=== PATIENT | male | born 2000 | race Caucasian/White ===

== ENCOUNTER 2024-04-04 21:44 | Emergency (ER) | payer MEDICAID ==
[2024-04-04] MEDS: Alum Hydrox/Mag Hydrox/Simeth 30 ML, Lidocaine 2% 15 ML PO ONE (22:51)
[2024-04-04] MEDS: Pantoprazole 40 MG in Sodium Chloride 0.9% 100 ML IV ONE (22:51)
[2024-04-04] MEDS: Sodium Chloride 0.9% 10 ML Syringe FLUSH PRN (22:59)
[2024-04-04 23:07] LABS: BASOPHILS PERCENT AUTO 0.6 % (0.0-1.0); EOSINOPHILS ABSOLUTE AUTO 0.1 K/mm3 (0.0-0.4); EOSINOPHILS PERCENT AUTO 1.1 % (0.0-6.0); HEMATOCRIT 43.9 % (42.0-52.0); HEMOGLOBIN 14.9 gm/dl (14.0-18.0); IMMATURE GRAN ABSOLUTE AUTO 0.02 K/mm3 (0.00-0.05); IMMATURE GRAN PERCENT AUTO 0.3 % (0.0-0.4); LYMPHOCYTES ABSOLUTE AUTO 1.8 K/mm3 (1.0-4.8); LYMPHOCYTES PERCENT AUTO 27.2 % (24.0-44.0); MEAN CORPUSCULAR HEMOGLOBIN 29.7 pg (28.0-32.0); MEAN CORPUSCULAR HGB CONC 33.9 g/dl (32.0-36.0); MEAN CORPUSCULAR VOLUME 87.5 fl (83.0-99.0); MEAN PLATELET VOLUME 8.6 fl (9.4-12.4); MONOCYTES ABSOLUTE AUTO 0.4 K/mm3 (0.0-0.8); MONOCYTES PERCENT AUTO 5.6 % (0.0-8.0); NEUTROPHILS ABSOLUTE AUTO 4.4 K/mm3 (1.8-7.7); NEUTROPHILS PERCENT AUTO 65.2 % (41.0-71.0); PLATELET COUNT,PLT 321 K/mm3 (150-400); RED BLOOD CELL COUNT 5.02 M/mm3 (4.52-5.90); WHITE BLOOD CELL COUNT,WBC 6.66 K/mm3 (3.9-11.3)
[2024-04-04 23:23] LABS: A/G RATIO 1.3 (1-2); ALBUMIN 4.3 g/dl (3.4-5.0); ANION GAP 11.8 (5-15); BILIRUBIN TOTAL 0.5 mg/dL (0.2-1.0); BUN/CREATININE RATIO 15.8 (14-18); CALCIUM 9.6 mg/dL (8.5-10.1); CREATININE 1.2 mg/dL (0.7-1.3); EST CRCL DRUG DOSING (CG) 106.88 mL/min; POTASSIUM,K 3.8 mEq/L (3.5-5.1); PROTEIN TOTAL,TP 7.6 g/dl (6.4-8.2)
[2024-04-04] MEDS: Sucralfate Suspension 1 GM/10 ML Cup PO ONE (23:34)
== END 2024-04-04 23:45 | disposition home or self-care (01) ==
LOC: JD.ED 21:44
DX: K21.00 Gastro-esophageal reflux disease with esophagitis, without bleeding (principal); K29.01 Acute gastritis with bleeding
CPT/HCPCS: 36415; 80053; 85025; 96365; 99284; A9270; C9113; J3490

== ENCOUNTER 2024-08-29 03:18 | Emergency (ER) | payer MEDICAID ==
[2024-08-29] MEDS ORDERED: Sodium Chloride 0.9% 10 ML Syringe FLUSH PRN (03:33)
[2024-08-29 03:50] LABS: BASOPHILS PERCENT AUTO 0.7 % (0.0-1.0); EOSINOPHILS ABSOLUTE AUTO 0.1 K/mm3 (0.0-0.4); EOSINOPHILS PERCENT AUTO 1.5 % (0.0-6.0); HEMATOCRIT 42.4 % (42.0-52.0); HEMOGLOBIN 14.6 gm/dl (14.0-18.0); IMMATURE GRAN ABSOLUTE AUTO 0.01 K/mm3 (0.00-0.05); IMMATURE GRAN PERCENT AUTO 0.2 % (0.0-0.4); LYMPHOCYTES ABSOLUTE AUTO 1.5 K/mm3 (1.0-4.8); LYMPHOCYTES PERCENT AUTO 25.9 % (24.0-44.0); MEAN CORPUSCULAR HEMOGLOBIN 29.7 pg (28.0-32.0); MEAN CORPUSCULAR HGB CONC 34.4 g/dl (32.0-36.0); MEAN CORPUSCULAR VOLUME 86.4 fl (83.0-99.0); MEAN PLATELET VOLUME 8.6 fl (9.4-12.4); MONOCYTES ABSOLUTE AUTO 0.5 K/mm3 (0.0-0.8); MONOCYTES PERCENT AUTO 8.5 % (0.0-8.0); NEUTROPHILS ABSOLUTE AUTO 3.7 K/mm3 (1.8-7.7); NEUTROPHILS PERCENT AUTO 63.2 % (41.0-71.0); PLATELET COUNT,PLT 330 K/mm3 (150-400); RED BLOOD CELL COUNT 4.91 M/mm3 (4.52-5.90)
[2024-08-29 04:25] LABS: A/G RATIO 1.3 (1-2); ALBUMIN 4.3 g/dl (3.4-5.0); ANION GAP 14.8 (5-15); BILIRUBIN TOTAL 0.8 mg/dL (0.2-1.0); BUN/CREATININE RATIO 20.8 (14-18); CALCIUM 9.2 mg/dL (8.5-10.1); CREATININE 1.2 mg/dL (0.7-1.3); EST CRCL DRUG DOSING (CG) 106.83 mL/min; POTASSIUM,K 3.8 mEq/L (3.5-5.1); PROTEIN TOTAL,TP 7.6 g/dl (6.4-8.2)
[2024-08-29 04:28] LABS: LACTIC ACID 0.5 mmol/L (0.4-2.0)
[2024-08-29 04:36] LABS: APPEARANCE,URINE CLEAR (Clear); BILIRUBIN,URINE NEGATIVE (Negative); COLOR,URINE YELLOW (Yellow); GLUCOSE,URINE NEGATIVE (Negative); KETONES,URINE 1+ (Negative); LEUKOCYTE ESTERASE,URINE NEGATIVE (Negative); NITRITE,URINE NEGATIVE (Negative); OCCULT BLOOD,URINE NEGATIVE (Negative); PROTEIN,URINE TRACE (Negative); UROBILINOGEN,URINE 0.2 (0.2-1.0)
[2024-08-29 04:48] LABS: AMORPHOUS SEDIMENT,URINE RARE /hpf (NOT SEEN); BACTERIA,URINE FEW /hpf (FEW); EPITHELIAL CELLS,URINE NOT SEEN /hpf (0-5); MUCUS,URINE FEW /hpf (FEW); RBC,URINE NOT SEEN /hpf (0-5); WBC,URINE 0-5 /hpf (0-5)
[2024-08-29] MEDS: Iopamidol 612 MG/ML 100 ML Bottle IVPUSH ONE (05:17)
== END 2024-08-29 06:28 | disposition home or self-care (01) ==
LOC: JD.ED 03:18
DX: R10.84 Generalized abdominal pain (principal); Z79.899 Other long term (current) drug therapy
CPT/HCPCS: 36415; 74177; 74177-26; 80053; 81001; 83605; 83690; 85025; 99284; Q9967

== ENCOUNTER 2024-08-29 07:31 | Inpatient (IN) | payer MEDICAID, OTHER ==
[2024-08-29] MEDS: diphenhydrAMINE 50 MG/ML SDV IVPUSH ONE (08:14)
[2024-08-29] MEDS: Sodium Chloride 0.9% 10 ML Syringe FLUSH PRN ×2 (08:16→10:27)
[2024-08-29] MEDS: Metoclopramide 10 MG/2 ML SDV IVPUSH ONE (08:16)
[2024-08-29] MEDS: Sodium Chloride 0.9% 1,000 ML IV ONE (08:18)
[2024-08-29 08:25] LABS: BASOPHILS ABSOLUTE AUTO 0.1 K/mm3 (0.0-0.2); BASOPHILS PERCENT AUTO 0.9 % (0.0-1.0); EOSINOPHILS PERCENT AUTO 0.4 % (0.0-6.0); HEMOGLOBIN 15.2 gm/dl (14.0-18.0); IMMATURE GRAN ABSOLUTE AUTO 0.03 K/mm3 (0.00-0.05); IMMATURE GRAN PERCENT AUTO 0.4 % (0.0-0.4); LYMPHOCYTES ABSOLUTE AUTO 1.8 K/mm3 (1.0-4.8); LYMPHOCYTES PERCENT AUTO 26.7 % (24.0-44.0); MEAN CORPUSCULAR HEMOGLOBIN 29.7 pg (28.0-32.0); MEAN CORPUSCULAR HGB CONC 34.5 g/dl (32.0-36.0); MEAN CORPUSCULAR VOLUME 85.9 fl (83.0-99.0); MEAN PLATELET VOLUME 8.6 fl (9.4-12.4); MONOCYTES ABSOLUTE AUTO 0.4 K/mm3 (0.0-0.8); MONOCYTES PERCENT AUTO 6.1 % (0.0-8.0); NEUTROPHILS ABSOLUTE AUTO 4.4 K/mm3 (1.8-7.7); NEUTROPHILS PERCENT AUTO 65.5 % (41.0-71.0); PLATELET COUNT,PLT 405 K/mm3 (150-400); RED BLOOD CELL COUNT 5.12 M/mm3 (4.52-5.90); WHITE BLOOD CELL COUNT,WBC 6.67 K/mm3 (3.9-11.3)
[2024-08-29 09:02] LABS: A/G RATIO 1.5 (1-2); ALBUMIN 4.7 g/dl (3.4-5.0); ANION GAP 19.4 (5-15); BUN/CREATININE RATIO 17.7 (14-18); CALCIUM 9.8 mg/dL (8.5-10.1); CREATININE 1.3 mg/dL (0.7-1.3); EST CRCL DRUG DOSING (CG) 96.37 mL/min; POTASSIUM,K 3.4 mEq/L (3.5-5.1); PROTEIN TOTAL,TP 7.8 g/dl (6.4-8.2)
[2024-08-29] MEDS: HYDROmorphone 1 MG/ML Syringe IVPUSH ONE (09:08)
[2024-08-29] MEDS ORDERED: Haloperidol Lactate 5 MG/ML SDV IV ONE (10:14)
[2024-08-29] MEDS: droPERidol 5 MG/2 ML SDV IVPUSH ONE (10:25)
[2024-08-29] MEDS ORDERED: fentaNYL 250 MCG/5 ML SDV ONE (10:34)
[2024-08-29] MEDS ORDERED: Propofol 200 MG/20 ML SDV ONE (10:34)
[2024-08-29] MEDS ORDERED: Midazolam 1 MG/ML 2 ML SDV ONE (10:34)
[2024-08-29] MEDS: Iopamidol 612 MG/ML 30 ML SDV IVPUSH ONE (10:34)
[2024-08-29] MEDS: Iopamidol 612 MG/ML 100 ML Bottle IVPUSH ONE (10:34)
[2024-08-29] MEDS ORDERED: Rocuronium 50 MG/5 ML Vial ONE (10:38)
[2024-08-29] MEDS ORDERED: ceFAZolin 2 GM Vial ONE (10:43)
[2024-08-29] MEDS ORDERED: Phenylephrine 1% 10 MG/ML SDV ONE (10:43)
[2024-08-29] MEDS ORDERED: Lactated Ringers 1,000 ML ONE ×2 (11:07)
[2024-08-29] MEDS ORDERED: Sodium Chloride 0.9% 1,000 ML ONE (11:07)
[2024-08-29] MEDS ORDERED: Sugammadex Sodium 200 MG/2 ML VIAL IV ONE (11:51)
[2024-08-29] MEDS ORDERED: Dexamethasone 4 MG/ML 5 ML MDV ONE (11:55)
[2024-08-29] MEDS ORDERED: HYDROmorphone 0.5 MG/0.5 ML Syringe ONE (11:55)
[2024-08-29] MEDS ORDERED: EPINEPHrine 1 MG/ML SDV ONE (12:01)
[2024-08-29] MEDS ORDERED: Bupivacaine 0.25% 10 ML SDV ONE (12:02)
[2024-08-29] MEDS: Piperacillin/Tazobactam 4.5 GM in Sodium Chloride 0.9% 100 ML IV ONE (12:04)
[2024-08-29] MEDS: Bupivacaine 0.5% 30 ML SDV ONE (12:30)
[2024-08-29] MEDS ORDERED: Ondansetron 4 MG/2 ML SDV IV PRN (13:14)
[2024-08-29] MEDS ORDERED: Sodium Chloride 0.9% 10 ML Syringe FLUSH PRN (13:24)
[2024-08-29] MEDS ORDERED: fentaNYL 100 MCG/2 ML SDV IVPUSH PRN (13:24)
[2024-08-29] MEDS ORDERED: HYDROmorphone 0.5 MG/0.5 ML Syringe IVPUSH PRN (13:24)
[2024-08-29] MEDS ORDERED: Ondansetron 4 MG/2 ML SDV IVPUSH PRN (13:24)
[2024-08-29] MEDS ORDERED: Lactated Ringers 1,000 ML IV SCH (13:30)
[2024-08-29] MEDS: Ketorolac 30 MG/ML SDV IVPUSH PRN (14:23)
[2024-08-29] MEDS: Piperacillin/Tazobactam 4.5 GM in Sodium Chloride 0.9% 100 ML IV SCH (15:38)
[2024-08-29] MEDS: Sucralfate Suspension 1 GM/10 ML Cup PO SCH (16:21)
[2024-08-29] MEDS: Pantoprazole 40 MG Vial IV SCH (17:00)
[2024-08-29] MEDS: Pantoprazole 40 MG Vial IV ONE (17:06)
[2024-08-29] MEDS: Benzocaine 20% Topical Spray UD MUCMEM ONE (20:49)
[2024-08-29] MEDS: Lactated Ringers 1,000 ML IV SCH (20:50)
[2024-08-29] MEDS ORDERED: Benzocaine 20% Topical Spray UD MUCMEM PRN (22:44)
[2024-08-30] MEDS: Benzocaine 20% Topical Spray UD MUCMEM ONE (01:23)
[2024-08-30] MEDS: Sodium Chloride 0.9% 10 ML Syringe FLUSH SCH (01:45)
[2024-08-30] MEDS: HYDROmorphone 0.5 MG/0.5 ML Syringe IVPUSH PRN ×3 (03:23→11:40)
[2024-08-30 05:30] LABS: HEMATOCRIT 36.1 % (42.0-52.0); MEAN CORPUSCULAR HEMOGLOBIN 30.3 pg (28.0-32.0); MEAN CORPUSCULAR HGB CONC 35.5 g/dl (32.0-36.0); MEAN CORPUSCULAR VOLUME 85.3 fl (83.0-99.0); RED BLOOD CELL COUNT 4.23 M/mm3 (4.52-5.90); WHITE BLOOD CELL COUNT,WBC 10.79 K/mm3 (3.9-11.3)
[2024-08-30 05:44] LABS: HEMOGLOBIN 12.8 gm/dl (14.0-18.0); PLATELET COUNT,PLT 283 K/mm3 (150-400)
[2024-08-30 05:53] LABS: ANION GAP 12.8 (5-15); BUN/CREATININE RATIO 13.3 (14-18); CALCIUM 8.6 mg/dL (8.5-10.1); CREATININE 1.2 mg/dL (0.7-1.3); EST CRCL DRUG DOSING (CG) 106.88 mL/min; MAGNESIUM 1.6 mg/dL (1.8-2.4); PHOSPHORUS 3.6 mg/dL (2.6-4.7); POTASSIUM,K 3.8 mEq/L (3.5-5.1)
[2024-08-30] MEDS: LORazepam 2 MG/ML SDV IVPUSH PRN (14:40)
[2024-08-31 05:25] LABS: HEMATOCRIT 36.5 % (42.0-52.0); HEMOGLOBIN 12.5 gm/dl (14.0-18.0); MEAN CORPUSCULAR HGB CONC 34.2 g/dl (32.0-36.0); MEAN CORPUSCULAR VOLUME 87.7 fl (83.0-99.0); MEAN PLATELET VOLUME 8.9 fl (9.4-12.4); PLATELET COUNT,PLT 250 K/mm3 (150-400); RED BLOOD CELL COUNT 4.16 M/mm3 (4.52-5.90); WHITE BLOOD CELL COUNT,WBC 6.84 K/mm3 (3.9-11.3)
[2024-08-31 05:45] LABS: ANION GAP 11.5 (5-15); BUN/CREATININE RATIO 14.5 (14-18); CALCIUM 8.9 mg/dL (8.5-10.1); CREATININE 1.1 mg/dL (0.7-1.3); EST CRCL DRUG DOSING (CG) 116.6 mL/min; POTASSIUM,K 3.5 mEq/L (3.5-5.1)
[2024-08-31] MEDS ORDERED: Lactated Ringers 1,000 ML IV SCH (18:47)
[2024-08-31] MEDS ORDERED: Melatonin 3 MG Tab PO PRN (18:48)
[2024-09-02 10:47] LABS: GASTRIN 89 pg/mL (0-100)
== END 2024-09-01 09:40 | disposition home or self-care (01) | DRG 328 ==
LOC: JD.ED 07:31 → JD.SDS 11:59 → JD.MS 14:53
PROVIDERS: ADMIT Surgery; ATTEND Surgery
PROC: 0DQ94ZZ Repair Duodenum, Percutaneous Endoscopic Approach (ICD-10-PCS; principal; 2024-08-29 12:30)
DX: K26.5 Chronic or unspecified duodenal ulcer with perforation (principal); D37.9 Neoplasm of uncertain behavior of digestive organ, unspecified; Z79.899 Other long term (current) drug therapy
CPT/HCPCS: 00790; 36415; 71045; 71045-26; 71260; 71260-26; 74018; 74018-26; 74177; 74177-26; 76705; 76705-26; 80048; 80053; 82941; 82947; 83605; 83690; 83735; 84100; 85025; 85027; 86850; 86900; 86901; 87040; 93005; 93010; 96361; 96374; 96375; 99140; 99285; 99285-25; A9270-GY; J0171; J0665; J0690; J1100; J1171; J1200; J1790; J1885; J2060; J2250; J2371; J2470; J2543; J2704; J2765; J3010; J3490; J7030; J7120; Q9967